=== PATIENT | male | born 1985 | race Hispanic/Latino ===

== ENCOUNTER 2019-11-24 05:37 | Emergency (ER) | payer OTHER ==
[2019-11-24] MEDS ORDERED: NA CHLORIDE 0.9% 1,000 ML ONE (06:49)
[2019-11-24 06:52] LABS: Absolute Lymphocytes (CBC) 1.1 K/uL (0.7-4.9); Basophils % 0.6 % (0-1.3); Hematocrit 44.3 % (39.6-49.0); Lymphocytes % 15.8 % (15.3-44.8); MPV 8.7 fL (7.6-11.3)
[2019-11-24 06:56] LABS: Protime INR 1.02
[2019-11-24 07:06] LABS: Arterial Blood Carboxyhemoglob 0.8 % (0-1.5); Blood O2 Saturation 98.5 % (92-98.5)
[2019-11-24 07:11] LABS: Barbiturates NEGATIVE (NEGATIVE); Benzodiazepines NEGATIVE (NEGATIVE); Cocaine NEGATIVE (NEGATIVE); METHAMPHETAM NEGATIVE (NEGATIVE); Methadone NEGATIVE (NEGATIVE); Opiates NEGATIVE (NEGATIVE); Phencyclidine NEGATIVE (NEGATIVE); THC Cannibis NEGATIVE (NEGATIVE)
[2019-11-24 07:30] LABS: ALT/SGPT 26 U/L (12-78); AST/SGOT 18 U/L (15-37); Albumin 4.2 g/dL (3.4-5.0); Alkaline Phosphatase 84 U/L (45-117); BUN Blood Urea Nitrogen 8 mg/dL (7-18); Bicarbonate 27 mmol/L (21-32); Bilirubin Direct 0.2 mg/dL (0-0.2); Bilirubin Total 0.9 mg/dL (0.2-1.0); Glucose Level 114 mg/dL (74-106); NT PRO-BNP 15 pg/mL (<125); Potassium 3.7 mmol/L (3.5-5.1); Protein, Total 7.3 g/dL (6.4-8.2); Sodium Level 139 mmol/L (136-145); Troponin (Emerg Dept Use Only) < 0.02 ng/mL (0.0-0.045)
--- NOTE | 2019-11-24 07:49 | EDPHYS ---
Physician Documentation [facility] Name: Mauro Flanagan Age: 34 yrs Sex: Male : 1985 Arrival Date: 11/24/2019 Time: 05:38 Bed 7 Private MD: ED Physician Channing Walker HPI: 11/24 06:24 This 34 yrs old Male presents to ER via EMS with complaints of Shortness Of gail Breath. 06:24 This 34 yrs old Male presents to ER via EMS with complaints of Shortness Of gail Breath. 06:24 The patient has shortness of breath at rest, with light activity. Onset: The gail symptoms/episode began/occurred just prior to arrival. Duration: The symptoms are continuous, and are unchanged since they started. The patient's shortness of breath has no apparent modifying factors. Associated signs and symptoms: Pertinent positives: non-productive cough, dizziness. Severity of symptoms: At their worst the symptoms were moderate in the emergency department the symptoms are unchanged. Historical: - Allergies: 05:40 Guaifenesin; jb4 - Home Meds: 05:40 None [Active]; jb4 - PMHx: 05:40 None; jb4 - PSHx: 05:40 None; jb4 - Immunization history:: Adult Immunizations up to date. - Coronavirus screen:: The patient has NOT traveled to [place], [place], or [place] in the past 14 days. Proceed with normal triage process as indicated. The patient has NOT had contact with known/suspected case of Coronavirus? Proceed with normal triage procedures. - Social history:: Smoking status: Patient denies any tobacco usage or history of. Patient uses alcohol, occasionally. Patient/guardian denies using street drugs. - Family history:: not pertinent. - Ebola Screening: : No symptoms or risks identified at this time. ROS: 06:24 Constitutional: Negative for fever, chills, and weight loss, Eyes: Negative for injury, gail pain, redness, and discharge, ENT: Negative for injury, pain, and discharge, Neck: Negative for injury, pain, and swelling, Cardiovascular: Negative for chest pain, palpitations, and edema, Abdomen/GI: Negative for abdominal pain, nausea, vomiting, diarrhea, and constipation, Back: Negative for injury and pain, : Negative for injury, bleeding, discharge, and swelling, MS/Extremity: Negative for injury and deformity, Skin: Negative for injury, rash, and discoloration, Neuro: Negative for headache, weakness, numbness, tingling, and seizure, Psych: Negative for depression, anxiety, suicide ideation, homicidal ideation, and hallucinations, Allergy/Immunology: Negative for hives, rash, and allergies, Endocrine: Negative for neck swelling, polydipsia, polyuria, polyphagia, and marked weight changes, Hematologic/Lymphatic: Negative for swollen nodes, abnormal bleeding, and unusual bruising. 06:24 Respiratory: Positive for cough, shortness of breath, at rest. Exam: 06:24 Constitutional: This is a well developed, well nourished patient who is awake, alert, gail and in no acute distress. Head/Face: Normocephalic, atraumatic. Eyes: Pupils equal round and reactive to light, extra-ocular motions intact. Lids and lashes normal. Conjunctiva and sclera are non-icteric and not injected. Cornea within normal limits. Periorbital areas with no swelling, redness, or edema. ENT: Nares patent. No nasal discharge, no septal abnormalities noted. Tympanic membranes are normal and external auditory canals are clear. Oropharynx with no redness, swelling, or masses, exudates, or evidence of obstruction, uvula midline. Mucous membranes moist. Neck: Trachea midline, no thyromegaly or masses palpated, and no cervical lymphadenopathy. Supple, full range of motion without nuchal rigidity, or vertebral point tenderness. No Meningismus. Chest/axilla: Normal chest wall appearance and motion. Nontender with no deformity. No lesions are appreciated. Cardiovascular: Regular rate and rhythm with a normal S1 and S2. No gallops, murmurs, or rubs. Normal PMI, no JVD. No pulse deficits. Respiratory: Lungs have equal breath sounds bilaterally, clear to auscultation and percussion. No rales, rhonchi or wheezes noted. No increased work of breathing, no retractions or nasal flaring. Abdomen/GI: Soft, non-tender, with normal bowel sounds. No distension or tympany. No guarding or rebound. No evidence of tenderness throughout. Back: No spinal tenderness. No costovertebral tenderness. Full range of motion. Male : Normal genitalia with no discharge or lesions. Skin: Warm, dry with normal turgor. Normal color with no rashes, no lesions, and no evidence of cellulitis. MS/ Extremity: Pulses equal, no cyanosis. Neurovascular intact. Full, normal range of motion. Neuro: Awake and alert, GCS 15, oriented to person, place, time, and situation. Cranial nerves II-XII grossly intact. Motor strength 5/5 in all extremities. Sensory grossly intact. Cerebellar exam normal. Normal gait. Psych: Awake, alert, with orientation to person, place and time. Behavior, mood, and affect are within normal limits. 06:24 Musculoskeletal/extremity: DVT Exam: No signs of deep vein thrombosis. no pain, no swelling, no tenderness, negative Homans' sign noted on exam, no appreciated bluish discoloration, no erythema, no increased warmth. 07:30 Cardiovascular: Rate: normal, Rhythm: regular, Pulses: Pulses are 4+ in bilateral gail radial, brachial, femoral, popliteal, posterior tibial and and dorsalis pedis arteries.. Heart sounds: normal, normal S1and S2, no S3 or S4, no murmur, no rub, no gallop, Edema: is not appreciated, JVD: is not appreciated. Vital Signs: 05:40 BP 156 / 110; Pulse 100; Resp 20; Temp 97.7(O); Pulse Ox 100% on R/A; Weight 92.99 kg jb4 (R); Height 5 ft. 11 in. (180.34 cm) (R); Pain 0/10; 06:45 BP 151 / 111; Pulse 76; Resp 18; Pulse Ox 100% on R/A; lp1 07:30 BP 143 / 86; Pulse 80; Resp 22; Temp 98.5(O); Pulse Ox 100% on 2 lpm NC; em 08:30 BP 138 / 79; Pulse 72; Resp 16; Pulse Ox 100% on R/A; em 05:40 Body Mass Index 28.59 (92.99 kg, 180.34 cm) jb4 MDM: 06:10 Patient medically screened. [facility] 06:24 Data reviewed: vital signs, nurses notes, lab test result(s), EKG, radiologic studies, [facility] plain films. 07:37 ED course: no trauma, no stasis, no hc state. [facility] 11/24 06:24 Order name: Basic Metabolic Panel [facility] 11/24 06:24 Order name: CBC with Diff [facility] 11/24 06:24 Order name: LFT's [facility] 11/24 06:24 Order name: Magnesium [facility] 11/24 06:24 Order name: NT PRO-BNP [facility] 11/24 06:24 Order name: PT-INR; Complete Time: 07:25 [facility] 11/24 06:24 Order name: Troponin (emerg Dept Use Only); Complete Time: 07:35 [facility] 11/24 06:24 Order name: Acetaminophen; Complete Time: 07:35 [facility] 11/24 06:24 Order name: ETOH Level; Complete Time: 07:25 [facility] 11/24 06:24 Order name: Ptt, Activated; Complete Time: 07:25 [facility] 11/24 06:24 Order name: Salicylate; Complete Time: 07:25 [facility] 11/24 06:24 Order name: Urine Drug Screen; Complete Time: 07:25 [facility] 11/24 06:24 Order name: ABG; Complete Time: 07:35 [facility] 11/24 06:24 Order name: Basic Metabolic Panel; Complete Time: 07:35 [facility] 11/24 06:24 Order name: XRAY Chest (1 view); Complete Time: 08:55 [facility] 11/24 06:24 Order name: EKG; Complete Time: 06:25 [facility] 11/24 06:24 Order name: Cardiac monitoring; Complete Time: 06:30 [facility] 11/24 06:24 Order name: EKG - Nurse/Tech; Complete Time: 06:50 [facility] 11/24 06:24 Order name: IV Saline Lock; Complete Time: 06:50 [facility] 11/24 06:24 Order name: Labs collected and sent; Complete Time: 06:50 [facility] 11/24 06:24 Order name: O2 Per Protocol; Complete Time: 06:30 [facility] 11/24 06:24 Order name: O2 Sat Monitoring; Complete Time: 06:30 [facility] 11/24 06:24 Order name: Urine Dipstick-Ancillary (obtain specimen); Complete Time: 07:06 [facility] 11/24 06:24 Order name: CBC with Automated Diff; Complete Time: 06:57 [facility] 11/24 06:24 Order name: Liver (Hepatic) Function; Complete Time: 07:35 [facility] 11/24 06:24 Order name: Magnesium; Complete Time: 07:35 [facility] 11/24 06:24 Order name: NT PRO-BNP; Complete Time: 07:35 [facility] 11/24 07:48 Order name: Diet Regular; Complete Time: 07:48 ss Administered Medications: 07:00 Drug: NS 0.9% 1000 ml Route: IV; Rate: 1 bolus; Site: right antecubital; lp1 08:49 Follow up: IV Status: Completed infusion; IV Intake: 1000ml em Disposition: 11/24/19 07:49 Discharged to Home. Impression: Dyspnea. - Condition is Stable. - Discharge Instructions: Shortness of Breath, Shortness of Breath, [id number]. - Medication Reconciliation Form, Thank You Letter, Antibiotic Education, Prescription Opioid Use form. - Follow up: Private Physician; When: 2 - 3 days; Reason: Recheck today's complaints, Continuance of care, Re-evaluation by your physician. - Problem is new. - Symptoms have improved. Signatures: Dispatcher [employer] Channing Hernandez MD MD cha Munoz, Edgar RN RN Ernestine Davis RN RN lp1 Hermilo Cooper RN RN jb4 Corrections: (The following items were deleted from the chart) 09:49 07:49 11/24/2019 07:49 Discharged to Home. Impression: Dyspnea. Condition is Stable. em Forms are Medication Reconciliation Form, Thank You Letter, Antibiotic Education, Prescription Opioid Use. Follow up: Private Physician; When: 2 - 3 days; Reason: Recheck today's complaints, Continuance of care, Re-evaluation by your physician. Problem is new. Symptoms have improved. gail
--- NOTE | 2019-11-24 07:49 | ER ---
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 He was wearing a respirator and took it off to get a drink. After doing so he reported smelling something and feeling dizzy and short of breath. Pt was hyperventilating on scene, his BGL was 140. blood pressure 144/94 and pulse maintained at 100-114. Pt remained 100% on roomair. 05:40 Transition of care: patient was not received from another setting of care. Onset of jb4 symptoms was November 24, 2019. Risk Assessment: Do you want to hurt yourself or someone else? Patient reports no desire to harm self or others. Initial Sepsis Screen: Does the patient meet any 2 criteria? HR > 90 bpm. Yes Does the patient have a suspected source of infection? No. Patient's initial sepsis screen is negative. Care prior to arrival: Glucose check: 140 Oxygen administered. via a non-rebreather mask. 05:40 Method Of Arrival: EMS: [facility] jb4 05:40 Acuity: MARTA 3 jb4 Historical: - Allergies: 05:40 Guaifenesin; jb4 - Home Meds: 05:40 None [Active]; jb4 - PMHx: 05:40 None; jb4 - PSHx: 05:40 None; jb4 - Immunization history:: Adult Immunizations up to date. - Coronavirus screen:: The patient has NOT traveled to [place], [place], or [place] in the past 14 days. Proceed with normal triage process as indicated. The patient has NOT had contact with known/suspected case of Coronavirus? Proceed with normal triage procedures. - Social history:: Smoking status: Patient denies any tobacco usage or history of. Patient uses alcohol, occasionally. Patient/guardian denies using street drugs. - Family history:: not pertinent. - Ebola Screening: : No symptoms or risks identified at this time. Screenin:46 Abuse screen: Denies threats or abuse. Denies injuries from another. Nutritional lp1 screening: No deficits noted. Tuberculosis screening: No symptoms or risk factors identified. Fall Risk None identified. Assessment: 06:40 General: Appears in no apparent distress. Behavior is calm, cooperative, Reports lp1 feeling ill for 0-12 hours. Pain: Denies pain. Neuro: Level of Consciousness is awake, alert, obeys commands, Oriented to person, place, time, situation, Reports dizziness, headache. Cardiovascular: Patient's skin is warm and dry. Rhythm is sinus rhythm. Respiratory: Airway is patent Respiratory effort is even, unlabored, Breath sounds are clear bilaterally. Onset: The symptoms/episode began/occurred suddenly, the patient has mild shortness of breath. GI: No signs and/or symptoms were reported involving the gastrointestinal system. : No signs and/or symptoms were reported regarding the genitourinary system. EENT: No signs and/or symptoms were reported regarding the EENT system. Derm: Skin is pink, warm \T\ dry. Musculoskeletal: No deficits noted. 07:25 Reassessment: reports feeling hot from the neck up, also reports becoming dizzy, em provider notified, VSS. 07:50 Reassessment: Patient appears in no apparent distress at this time. up for discharge, em pending symptoms to improve. 08:38 Reassessment: Patient appears in no apparent distress at this time. Patient and/or em family updated on plan of care and expected duration. Pain level reassessed. Patient is alert, oriented x 3, equal unlabored respirations, skin warm/dry/pink. breakfast tray delivered, reports still feeling warm, mother at bedside. 08:55 Reassessment: Patient appears in no apparent distress at this time. Dr. Walker at em bedside. Vital Signs: 05:40 BP 156 / 110; Pulse 100; Resp 20; Temp 97.7(O); Pulse Ox 100% on R/A; Weight 92.99 kg jb4 (R); Height 5 ft. 11 in. (180.34 cm) (R); Pain 0/10; 06:45 BP 151 / 111; Pulse 76; Resp 18; Pulse Ox 100% on R/A; lp1 07:30 BP 143 / 86; Pulse 80; Resp 22; Temp 98.5(O); Pulse Ox 100% on 2 lpm NC; em 08:30 BP 138 / 79; Pulse 72; Resp 16; Pulse Ox 100% on R/A; em 05:40 Body Mass Index 28.59 (92.99 kg, 180.34 cm) jb4 ED Course: 05:38 Patient arrived in ED. cl3 05:40 Arm band placed on right wrist. jb4 05:46 Hermilo Cooper, RN is Primary Nurse. jb4 05:53 Triage completed. jb4 06:10 Channing Walker MD is Attending Physician. gail 06:40 Inserted saline lock: 20 gauge in right antecubital area, using aseptic technique. lp1 Blood collected. 06:40 Initial lab(s) drawn, by nv, sent to lab. lp1 06:47 Ernestine Davis, RN is Primary Nurse. lp1 06:48 Patient has correct armband on for positive identification. Placed in gown. Bed in low lp1 position. court monitor on. Pulse ox on. NIBP on. 07:23 XRAY Chest (1 view) In Process Unspecified. EDMS 09:01 No provider procedures requiring assistance completed. IV discontinued, intact, em bleeding controlled, No redness/swelling at site. Pressure dressing applied. Administered Medications: 07:00 Drug: NS 0.9% 1000 ml Route: IV; Rate: 1 bolus; Site: right antecubital; lp1 08:49 Follow up: IV Status: Completed infusion; IV Intake: 1000ml em Intake: 08:49 IV: 1000ml; Total: 1000ml. em Outcome: 07:49 Discharge ordered by MD. [facility] 09:41 Discharged to home ambulatory, with family. em 09:41 Condition: good 09:41 Discharge instructions given to patient, family, Instructed on discharge instructions, follow up and referral plans. Demonstrated understanding of instructions, follow-up care. 09:49 Patient left the ED. em Signatures: Dispatcher [employer] EDMS Channing Walker MD MD cha Munoz, Edgar, RN RN em Ernestine Davis, KAYLA RN lp1 Hermilo Cooper, KAYLA RN [email or web address] Bob Higgins cl3 Corrections: (The following items were deleted from the chart) 06:48 06:40 Respiratory: Airway is patent Respiratory effort is even, unlabored, Breath lp1 sounds are clear bilaterally. lp1
--- NOTE | 2019-11-24 08:17 | RAD REPORT ---
EXAM DESCRIPTION: RAD - Chest Single View - 11/24/2019 7:18 am CLINICAL HISTORY: COUGH COMPARISON: Abdomen Acute Series dated 09/20/2016 TECHNIQUE: AP portable chest image was obtained 11/24/2019 7:18 am . FINDINGS: Lungs are clear. Heart and vasculature are normal. No measurable pleural effusion and no p neumothorax. No acute bony abnormality seen. No acute aortic findings suspected. IMPRESSION: No acute cardiopulmonary process. No significant change from comparison.
[2019-11-24 10:05] VITALS: O2SAT 100
[2019-11-24 10:07] VITALS: TEMP 98.5
[2019-11-24 10:09] VITALS: BP 138/79
--- NOTE | 2019-11-25 05:28 | EKG ---
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
== END 2019-11-24 09:49 | disposition home or self-care (01) ==
LOC: ER 05:37
DX: R06.00 Dyspnea, unspecified (principal); Z88.8 Allergy status to other drugs, medicaments and biological substances
CPT/HCPCS: 36415; 71045; 80048; 80076; 80307; 80320; 80329; 82805; 83735; 83880; 84484; 85025; 85610; 85730; 93005; 96360; 96361; 99284; J7030

== ENCOUNTER 2020-08-11 02:36 | Emergency (ER) | payer OTHER ==
--- OUTSIDE RECORDS SUMMARY | 2020-08-11 02:38 | XMS REPORT | Clinical Summary ---
:1985 Author Organization [facility] Address [address] [place] [address] Care Team Providers Name Role Phone Unavailable Primary Care Provider Unavailable Allergies Not on File Medications Not on file Active Problems Not on file Social History Tobacco Use Types Packs/Day Years Used Date Never Assessed Sex Assigned at Date Recorded Not on file Last Filed Vital Signs Not on file Plan of Treatment Not on file Results Not on fileafter 08/11/2019 Insurance Payer Benefit Plan / Subscriber ID Effective Dates Phone Addre ss Type Group BLUE BCBS PPO POS [id number] 2018-Vikram [phone] [id number] PPO CROSS/BLUE EPO CHOICE t 2 [facility] [id number] ([place]) [place] [address]
--- OUTSIDE RECORDS SUMMARY | 2020-08-11 02:38 | XMS REPORT | Continuity of Care Document ---
:1985 Author Organization [facility] t Address [address] [place] [address] Care Team Providers Name Role Phone Christiano Ortega MD Attending Clinician Cynthia GARZA M Attending Clinician Unavailable Jeremiah Vazquez Attending Clinician Adrien MORTENSEN Attending Clinician Doctor Unassigned, Name Attending Clinician Unavailable Jenifer Burns DO Attending Clinician Problems This patient has no known problems. Allergies, Adverse Reactions, Alerts This patient has no known allergies or adverse reactions. Social History Social Habit Start Date Stop Date Quantity Comments Source Sex Assigned At [facility] Medications This patient has no known medications. Procedures This patient has no known procedures. Encounters Start End Encounter Admission Attending Care Care Encounter Source Date/Time Date/Time Type Type Clinicians Facility Department ID 2020-08-09 2020-08-09 Emergency Ángelavt [facility] [id number] 02:55:00 05:26:00 Claudia Marquez [id number] [place] [id number] [place] [id number] 2020-08-09 2020-08-09 Telephone Cinthya Marie [id number] 00:00:00 00:00:00 SETH [id number] [facility] [id number] 2020-04-14 2020-04-14 Emergency [facility] [id number] 19:48:48 22:09:00 Sylvester Jeremiah Alma [id number] [place] [id number] [place] [id number] 2020-02-08 2020-02-08 Emergency [facility] [id number] 08:38:28 10:45:00 Connoranastacia Marquez [id number] [place] [id number] [place] [id number] 2020-01-16 2020-01-16 Emergency [facility] [id number] 00:05:28 01:35:00 Claudia Marquez [id number] [place] [id number] [place] [id number] 2020-01-16 2020-01-16 Orders Doctor JASIEL [id number] 00:00:00 00:00:00 Only Unassigned, SETH [id number] [facility] [id number] 2019-12-18 2019-12-18 Emergency [facility] [id number] 00:14:18 01:15:00 Mary Marquez [id number] [place] [id number] [place] [id number] Results This patient has no known results.
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
--- OUTSIDE RECORDS SUMMARY | 2020-08-11 02:39 | XMS REPORT | Summary of Care ---
:1985 Author Organization [facility] Address [address] [place] [address] Care Team Providers Name Role Phone Lauren Martin MD Primary Care Provider Reason for Visit Reason Comments Results Encounter Details Date Type Department Care Team Description 08/09/2020 Telephone [facility] Cinthya Marie, RN Results [address] [phone] [place], [place] [id number] Allergies Active Allergy Reactions Severity Noted Date [...] of this encounter Last Filed Vital Signs Not on filedocumented in this encounter Miscellaneous Notes Telephone Encounter - Cinthya Marie RN - 08/09/2020 11:37 PM CDTMauro Flanagan is a 35 year old male who tested negative for Covid-19. Letter sent with the following information. Your COVID 19 testing results were negative. At this time, the COVID 19 virus was NOT found in your sample. Continue to protect yourself by wearing a facemask and washing your hands frequently. If youhave not had symptoms, you may return to work immediately. If you had symptoms, you may return to work or school when you are feeling better and have not had a fever for 24 hours or more without takingfever reducing medications such as acetaminophen or ibuprofen and are 10 days from your first symptoms. Wear a mask until it has been greater than 14 days from when your first symptoms appeared. If you are a [facility] or contract employee or student, please refer to this website for more information https: [email or web address]. If you feel you are not getting better, please call the Access Center at [phone] or toll free to schedule a telehealth visit or face to face visit with a provider. Most acute illnesses resolve within 7 days. DAVY [facility] Triage Nurse documented in this encounter Plan of Treatment Health Maintenance Due Date Last Done Comments VARICELLA VACCINES (1 of 2 - 2-dose childhood series) 1987 PNEUMOCOCCAL 0-64 YEARS COMBINED SERIES (1 of 1 - 1992 PPSV23) Depression Screening 1998 DTaP,Tdap,and Td Vaccines (1 - Tdap) 2005 INFLUENZA VACCINE (#1) 2020 documented as of this encounter Results Not on filedocumented in this encounter Additional Health Concerns Infection Onset Date Last Indicated Resolved Time COVID-19 Rule Out 08/09/2020 08/09/2020 08/09/2020 6: 31 PM CDT documented as of this encounter
[2020-08-11] MEDS ORDERED: LORazepam 2 MG/ML VIAL ONE (02:50)
[2020-08-11] MEDS ORDERED: ONDANSETRON 4 MG/2 ML VIAL ONE (03:10)
[2020-08-11] MEDS ORDERED: NA CHLORIDE 0.9% 1,000 ML ONE ×2 (03:26→03:41)
[2020-08-11 03:49] LABS: Basophils % 0.5 % (0-1.3); Hematocrit 46.5 % (39.6-49.0); Lymphocytes % 27.3 % (15.3-44.8); MPV 8.8 fL (7.6-11.3); RBC Red Blood Cell Count 5.25 M/uL (4.33-5.43)
[2020-08-11 04:05] LABS: Potassium 3.9 mmol/L (3.5-5.1)
[2020-08-11] MEDS ORDERED: ACETAMINOPHEN 500 MG TAB ONE (04:54)
[2020-08-11] MEDS ORDERED: IBUPROFEN 400 MG TAB ONE (04:54)
--- NOTE | 2020-08-11 05:25 | EDPHYS ---
Physician Documentation [facility] Name: Mauro Flanagan Age: 35 yrs Sex: Male : 1985 Arrival Date: 08/11/2020 Time: 02:38 Bed 14 Private MD: ED Physician Terry Ariza HPI: 08/11 04:42 This 35 yrs old Male presents to ER via Ambulatory with complaints of Migraine.pkl 04:42 The patient complains of pain to the top of head and forehead. The patient describes pkl the headache as constant. Onset: The symptoms/episode began/occurred 3 day(s) ago. Associated signs and symptoms: Pertinent positives: nausea. Seen at [facility] ER 3 days ago for same complaints. Had Covid 19 done. Told it was negative. Historical: - Allergies: 03:10 GUAIFENESIN; jb4 - Home Meds: 03:10 z-pack [Active]; jb4 - PMHx: 03:10 None; jb4 - PSHx: 03:10 None; jb4 - Immunization history:: Adult Immunizations up to date. - Social history:: Smoking status: Patient denies any tobacco usage or history of. Patient/guardian denies using alcohol, street drugs. ROS: 04:42 Eyes: Negative for injury, pain, redness, and discharge, ENT: Negative for injury, pkl pain, and discharge, Neck: Negative for injury, pain, and swelling, Cardiovascular: Negative for chest pain, palpitations, and edema, Respiratory: Negative for shortness of breath, cough, wheezing, and pleuritic chest pain, Abdomen/GI: Negative for abdominal pain, nausea, vomiting, diarrhea, and constipation, Back: Negative for injury and pain, : Negative for injury, bleeding, discharge, and swelling, MS/Extremity: Negative for injury and deformity, Skin: Negative for injury, rash, and discoloration. 04:42 Neuro: Positive for headache. Exam: 04:42 Head/Face: Normocephalic, atraumatic. Eyes: Pupils equal round and reactive to light, pkl extra-ocular motions intact. Lids and lashes normal. Conjunctiva and sclera are non-icteric and not injected. Cornea within normal limits. Periorbital areas with no swelling, redness, or edema. ENT: Nares patent. No nasal discharge, no septal abnormalities noted. Tympanic membranes are normal and external auditory canals are clear. Oropharynx with no redness, swelling, or masses, exudates, or evidence of obstruction, uvula midline. Mucous membranes moist. Neck: Trachea midline, no thyromegaly or masses palpated, and no cervical lymphadenopathy. Supple, full range of motion without nuchal rigidity, or vertebral point tenderness. No Meningismus. Chest/axilla: Normal chest wall appearance and motion. Nontender with no deformity. No lesions are appreciated. Cardiovascular: Regular rate and rhythm with a normal S1 and S2. No gallops, murmurs, or rubs. Normal PMI, no JVD. No pulse deficits. Respiratory: Lungs have equal breath sounds bilaterally, clear to auscultation and percussion. No rales, rhonchi or wheezes noted. No increased work of breathing, no retractions or nasal flaring. Abdomen/GI: Soft, non-tender, with normal bowel sounds. No distension or tympany. No guarding or rebound. No evidence of tenderness throughout. Back: No spinal tenderness. No costovertebral tenderness. Full range of motion. Skin: Warm, dry with normal turgor. Normal color with no rashes, no lesions, and no evidence of cellulitis. MS/ Extremity: Pulses equal, no cyanosis. Neurovascular intact. Full, normal range of motion. Neuro: Awake and alert, GCS 15, oriented to person, place, time, and situation. Cranial nerves II-XII grossly intact. Motor strength 5/5 in all extremities. Sensory grossly intact. Cerebellar exam normal. Normal gait. Vital Signs: 03:10 BP 141 / 92; Pulse 63; Resp 16; Temp 98.2(A); Pulse Ox 100% on R/A; Weight 90.72 kg jb4 (R); Height 5 ft. 10 in. (177.80 cm); Pain 10/10; 04:40 BP 129 / 89; Pulse 54; Resp 16; Pulse Ox 100% on R/A; jb4 05:32 BP 123 / 90; Pulse 55; Resp 16; Pulse Ox 100% on R/A; Pain 2/10; jb4 03:10 Body Mass Index 28.70 (90.72 kg, 177.80 cm) [facility] MDM: 03:11 Patient medically screened. pkl 05:19 Data reviewed: vital signs, nurses notes, radiologic studies, CT scan. ED course: pkl Patient feeling better. Discussed lab and CT Scan result with patient. Advised to follow up with PCP in 2 to 3 days. To return if necessary. Patient understood instructions. 08/11 03:24 Order name: CBC with Diff; Complete Time: 04:32 pkl 08/11 03:24 Order name: Chem 7; Complete Time: 04:32 pkl 08/11 03:24 Order name: CT Head Brain wo Cont pkl Administered Medications: 03:37 Drug: NS 0.9% 1000 ml Route: IV; Rate: 1000 ml; Site: right antecubital; jb4 04:39 Follow up: Response: No adverse reaction; IV Status: Completed infusion jb4 04:45 Drug: Tylenol 1000 mg Route: PO; jb4 05:34 Follow up: Response: No adverse reaction; Pain is decreased jb4 04:45 Drug: Motrin 400 mg Route: PO; jb4 05:35 Follow up: Response: No adverse reaction; Pain is decreased jb4 Disposition: 08/11/20 05:24 Discharged to Home. Impression: Acute headache. - Condition is Stable. - Medication Reconciliation Form, Thank You Letter, Antibiotic Education, Prescription Opioid Use form. - Follow up: Private Physician; When: 2 - 3 days; Reason: Re-evaluation by your physician. - Problem is new. - Symptoms have improved. Signatures: Dispatcher [employer] EDMS Terry Ariza MD MD pkHermilo Reyes RN RN jb4 Corrections: (The following items were deleted from the chart) 05:35 05:24 08/11/2020 05:24 Discharged to Home. Impression: Acute headache. Condition is jb4 Stable. Forms are Medication Reconciliation Form, Thank You Letter, Antibiotic Education, Prescription Opioid Use. Follow up: Private Physician; When: 2 - 3 days; Reason: Re-evaluation by your physician. Problem is new. Symptoms have improved. pkl
--- NOTE | 2020-08-11 05:25 | ER ---
Nurse's Notes [facility] Name: Mauro Flanagan Age: 35 yrs Sex: Male : 1985 Arrival Date: 08/11/2020 Time: 02:38 Bed 14 Private MD: Diagnosis: Acute headache Presentation: 08/11 03:10 Chief complaint: Patient states: I have a headache that started on Monday. I have had jb4 migraines before but this is a different kind of headache. It runs down to my neck. I thought it was a pinched nerve but this is worse. 03:10 Coronavirus screen: Client denies travel out of the [place] in the last 14 days. At this jb4 time, the client does not indicate any symptoms associated with coronavirus-19. Ebola Screen: No symptoms or risks identified at this time. Initial Sepsis Screen: Does the patient meet any 2 criteria? No. Patient's initial sepsis screen is negative. Does the patient have a suspected source of infection? No. Patient's initial sepsis screen is negative. Risk Assessment: Do you want to hurt yourself or someone else? Patient reports no desire to harm self or others. Onset of symptoms was August 08, 2020. Transition of care: patient was not received from another setting of care. 03:10 Method Of Arrival: Ambulatory jb4 03:10 Acuity: MARTA 3 jb4 Historical: - Allergies: 03:10 GUAIFENESIN; jb4 - Home Meds: 03:10 z-pack [Active]; jb4 - PMHx: 03:10 None; jb4 - PSHx: 03:10 None; jb4 - Immunization history:: Adult Immunizations up to date. - Social history:: Smoking status: Patient denies any tobacco usage or history of. Patient/guardian denies using alcohol, street drugs. Screenin:10 Abuse screen: Denies threats or abuse. Nutritional screening: No deficits noted. jb4 Tuberculosis screening: No symptoms or risk factors identified. Fall Risk None identified. Assessment: 03:10 General: Appears in no apparent distress. uncomfortable, Behavior is calm, cooperative, jb4 appropriate for age. Pain: Complains of pain in scalp Pain radiates to neck Pain currently is 10 out of 10 on a pain scale. Neuro: Level of Consciousness is awake, alert, obeys commands, Oriented to person, place, time, situation. Cardiovascular: Patient's skin is warm and dry. Respiratory: Airway is patent Respiratory effort is even, unlabored, Respiratory pattern is regular, symmetrical. GI: No signs and/or symptoms were reported involving the gastrointestinal system. : No signs and/or symptoms were reported regarding the genitourinary system. EENT: No signs and/or symptoms were reported regarding the EENT system. Derm: Skin is intact, Skin is pink, warm \T\ dry. Musculoskeletal: Circulation, motion, and sensation intact. Range of motion: intact in all extremities. 04:30 Reassessment: Patient appears in no apparent distress at this time. Patient and/or jb4 family updated on plan of care and expected duration. Pain level reassessed. Patient is alert, oriented x 3, equal unlabored respirations, skin warm/dry/pink. 05:32 Reassessment: Patient appears in no apparent distress at this time. Patient and/or jb4 family updated on plan of care and expected duration. Pain level reassessed. Patient is alert, oriented x 3, equal unlabored respirations, skin warm/dry/pink. Vital Signs: 03:10 BP 141 / 92; Pulse 63; Resp 16; Temp 98.2(A); Pulse Ox 100% on R/A; Weight 90.72 kg jb4 (R); Height 5 ft. 10 in. (177.80 cm); Pain 10/10; 04:40 BP 129 / 89; Pulse 54; Resp 16; Pulse Ox 100% on R/A; jb4 05:32 BP 123 / 90; Pulse 55; Resp 16; Pulse Ox 100% on R/A; Pain 2/10; jb4 03:10 Body Mass Index 28.70 (90.72 kg, 177.80 cm) 4 ED Course: 02:38 Patient arrived in ED. cl3 02:56 Hermilo Cooper, KAYLA is Primary Nurse. jb4 03:10 Arm band placed on right wrist. jb4 03:10 Patient has correct armband on for positive identification. Bed in low position. Call [facility] light in reach. Side rails up X 1. Pulse ox on. NIBP on. 03:11 Terry Ariza MD is Attending Physician. pkl 03:18 Triage completed. jb4 03:30 Initial lab(s) drawn, by me, sent to lab. Inserted saline lock: 18 gauge in right jb4 antecubital area, using aseptic technique. Blood collected. 03:49 CT Head Brain wo Cont In Process Unspecified. EDMS 05:34 No provider procedures requiring assistance completed. IV discontinued, intact, jb4 bleeding controlled, No redness/swelling at site. Pressure dressing applied. Administered Medications: 03:37 Drug: NS 0.9% 1000 ml Route: IV; Rate: 1000 ml; Site: right antecubital; jb4 04:39 Follow up: Response: No adverse reaction; IV Status: Completed infusion jb4 04:45 Drug: Tylenol 1000 mg Route: PO; jb4 05:34 Follow up: Response: No adverse reaction; Pain is decreased jb4 04:45 Drug: Motrin 400 mg Route: PO; jb4 05:35 Follow up: Response: No adverse reaction; Pain is decreased jb4 Outcome: 05:24 Discharge ordered by . pkriver 05:34 Discharged to home ambulatory. jb4 05:34 Condition: stable 05:34 Discharge instructions given to patient, Instructed on discharge instructions, follow up and referral plans. Demonstrated understanding of instructions, follow-up care. 05:35 Patient left the ED. jb4 Signatures: Dispatcher [employer] Terry Garzon MD MD pkl Hermilo Cooper, RN RN [email or web address] Bob Higgins cl3
[2020-08-11 05:42] VITALS: TEMP 98.2; O2SAT 100
[2020-08-11 05:45] VITALS: BP 123/90
--- NOTE | 2020-08-11 09:52 | RAD REPORT ---
EXAM DESCRIPTION: CT Head Without Intravenous Contrast CLINICAL HISTORY: The patient is 35 years old and is Male; HEADACHE TECHNIQUE: Axial computed tomography images of the head/brain without intravenous contrast. Sagitt al and coronal reformatted images were created and reviewed. This CT exam was performed using one o r more of the following dose reduction techniques: automated exposure control, adjustment of the mA and/or kV according to patient size, and/or use of iterative reconstruction technique. COMPARISON: No relevant prior studies available. FINDINGS: BRAIN: Unremarkable. The brock-white matter differentiation is preserved . No hemorrhag e. No significant white matter disease. No edema. No extra-axial fluid collections. VENTRICLES: Unremarkable. No ventriculomegaly. BONES/JOINTS: No acute fracture. SOFT TISSUES: Unremarkable. SINUSES: Unremarkable as visualized. No acute sinusitis. MASTOID AIR CELLS: Unremarkable as visualized. No mastoid effusion. ORBITS: Unremarkable as visualized. IMPRESSION: No acute intracranial findings. Electronically signed by: Alicia Fnich MD 08/11/2020 3:56 AM CDT Due to temporary technical issues with the PACS/Fluency reporting system, reports are being signed by the in house radiologist without review as a courtesy to ensure prompt reporting. The interpreting r adiologist is fully responsible for the content of the report.
== END 2020-08-11 05:35 | disposition home or self-care (01) ==
LOC: ER 02:36
DX: R51.9 Headache, unspecified (principal); Z88.8 Allergy status to other drugs, medicaments and biological substances
CPT/HCPCS: 85025; 80048; 36415; 70450; 96360; 99284; J2405; J7030

== ENCOUNTER 2022-01-13 22:46 | Emergency (ER) | payer SELFPAY ==
--- OUTSIDE RECORDS SUMMARY | 2022-01-13 22:49 | XMS REPORT | Continuity of Care Document ---
:1985 Author Organization [facility] t Address [address] [place] [address] Care Team Providers Name Role Phone Lauren LIMA Primary Care Physician Unavailable Stewart Erazo Attending Clinician Unavailable EBRAHIM Attending Clinician Unavailable Harriet BONDP Attending Clinician Jesus MORTENSEN Attending Clinician Shannon MORTENSEN, S Attending Clinician Cynthia GARZA, M Attending Clinician Unavailable Kiarra LOVE, B Attending Clinician Adrien MORTENSEN Attending Clinician Doctor Unassigned, Name Attending Clinician Unavailable Jenifer Burns DO Attending Clinician Payers Payer Name Policy Type Policy Number Effective Date Expiration Date Christiano SALGADO FROM [id number] 2021 [facility] 00:00:00 Problems Condition Condition Condition Status Onset Resolution Last Treating Co mments Source Name Details Category Date Date Treatment Clinician Date Appendicit Appendicit Disease Active U nivers is is 8-25 ity of 00:00: [place] [id number] Medical Branch Allergies, Adverse Reactions, Alerts Allergy Allergy Status Severity Reaction(s) Onset Inactive Treating Comm ents Source Name Type Date Date Clinician LIDOCAIN DRUG Active Other-Cmnt 2021-1 Univ ers E INGREDI 2-24 ity of 00:00: [place] 00 Medical Branch Lidocain Propensi Active Other - See 2020-10 High bp Univers e ty to comments 12-16 ity of adverse 00:00: [place] reaction 00 Medical s Branch Guaifene Propensi Active Rash Univer s sin ty to 12-18 ity of adverse 00:00: [place] reaction Medical s Branch GUAIFENE DRUG Active Rash Univers SIN INGREDI 12-18 ity of 00:00: [place] 00 Medical Branch Social History Social Habit Start Date Stop Date Quantity Comments Source History SDOH University o f Alcohol Frequency [place] [facility] History SDOH University o f Alcohol Std [place] [facility] Drinks Branch History SDTX University o f Alcohol Binge [place] [facility] al Branch History of Snuff User University of tobacco use [facility] Exposure to Not sure University of SARS-CoV-2 [facility] (event) [place] Alcohol intake 2021-10-07 2021-10-07 Current drinker Unive rsity of 00:00:00 00:00:00 of alcohol [facility] (finding) [place] Tobacco use and 2021-06-16 2021-06-16 Current user Univers ity of exposure 00:00:00 00:00:00 [facility] Tobacco Comment 2016-01-05 2016-01-05 smokes on Universit y of 00:00:00 00:00:00 weekends [facility] Alcohol Comment 2016-01-05 2016-01-05 on weekends Universi ty of 00:00:00 00:00:00 [facility] Sex Assigned At [address] [facility] - 00:00:00 00:00:00 [facility] Smoking Status Start Date Stop Date Source Former smoker 2021-06-16 00:00:00 2021-06-16 00:00:00 Universi ty of [facility] Medications Ordered Filled Start Stop Current Ordering Indication Dosage Frequency Signature Comments Components Source Medication Medication Date Date Medication? Clinician (SIG) Name Name acetaminoph 2020-10 No 1000mg 1,000 mg, Univers en 12-17 Oral, ity of (TYLENOL) 04:00: 03:03 ONCE, [place] tablet [place] dose, On Medical 1,000 mg Fri Branch 12/24/21 at 2200, MAKENZIE ibuprofen 2020-10 Yes [id number] 800mg Take 1 Univers 800 mg 2-16 tablet by ity of tablet 00:00: mouth [place] 00 every 6 Medical (six) Branch hours as needed for Pain (scale 1-3). ibuprofen 2020-10 Yes [id number] 800mg Take 1 Univers 800 mg 2-16 tablet by ity of tablet 00:00: mouth [place] 00 every 6 Medical (six) Branch hours as needed for Pain (scale 1-3). Vital Signs Vital Name Observation Time Observation Value Comments Source Systolic blood 2021-10-16 02:55:00 152 mm[Hg] Univer [facility]ity of [facility] Diastolic blood 2021-10-16 02:55:00 88 [facility]Hg[facility] Heart rate 2021-10-16 02:55:00 96 /min Universi ty [facility] Body temperature 2021-10-16 02:55:00 38.11 Alessandra [facility] Respiratory rate 2021-10-16 02:55:00 20 /min [facility] Body height 2021-10-16 02:55:00 177.8 cm Universi ty [facility] Body weight 2021-10-16 02:55:00 91.173 kg Universi ty [facility] BMI 2021-10-16 02:55:00 28.84 kg/m2 [facility] Oxygen saturation in 2021-10-16 02:55:00 99 /min University Arterial blood by [facility] Pulse oximetry Branch Systolic blood 2021-10-07 22:06:00 127 mm[Hg] Univer sity of [facility] Diastolic blood 2021-10-07 22:06:00 81 mm[Hg] Unive rsity of [facility] Heart rate 2021-10-07 22:06:00 63 /min Universi ty [facility] Body temperature 2021-10-07 22:06:00 36.17 Alessandra [facility] Res[facility] rate 2021-10-07 22:06:00 18 /min [facility] Body height 2021-10-07 22:06:00 180.3 cm Universi ty [facility] Body weight 2021-10-07 22:06:00 102.331 kg [facility] BMI 2021-10-07 22:06:00 31.46 kg/m2 [facility] Oxygen saturation in 2021-10-07 22:06:00 97 /min University Arterial blood by [facility] Pulse oximetry Branch Procedures Procedure Date / Time Performed Performing Clinician Sourc e RAPID STREP SCREEN 2021-10-16 02:59:00 Edda Larios [facility] FOR GROUP A Medical Branch COVID-19 (ID NOW 2021-10-16 02:59:00 Edda Larios [facility] RAPID TESTING) Medical Branch CONSENT/REFUSAL FOR 2021-10-16 02:36:12 Doctor Unassigned, No Un [facility] DIAGNOSIS AND Name Medical Branch TREATMENT Encounters Start End Encounter Admission Attending Care Care Encounter Source Date/Time Date/Time Type Type Clinicians Facility Department ID 2021-11-17 Outpatient [facility] [id number] [facility] [address] 13:24:20 [place] [id number] [facility] 2021-11-17 Outpatient Erazo, [facility] [id number] 12:50:53 [place] [id number] [facility] 2021-11-17 Outpatient Erazo, [facility] [id number] 12:40:29 [place] [id number] [facility] 2021-11-17 Outpatient Erazo, [facility] [id number] 12:34:01 [place] [id number] [facility] 2021-10-15 2021-10-15 Emergency X EBRAHIM, [facility] ERT [id number] Univers 20:58:00 23:19:00 EDDA del toro [facility] 2021-10-15 2021-10-15 Emergency Ebrahim, [facility] [id number] Univers 20:58:00 23:19:00 Edda COLVIN [id number] i ty [facility] [id number] [facility] [id number] [facility] 084 Branch 2021-10-07 2021-10-07 [facility] [id number] Univers 15:45:00 16:28:44 Visit Karla MARII [id number] i ty of [place] [id number] Eddie SALDIVAR [id number] Ne dical [address] 2020-08-09 2020-08-09 Emergency [facility] [id number] 02:55:00 05:26:00 Mattraghu Colivn [id number] [place] [id number] [place] [id number] 2020-08-09 2020-08-09 Telephone Cinthya Marie [id number] 00:00:00 00:00:[id number] [facility] [id number] 2020-04-14 2020-04-14 Emergency [facility] [id number] 19:48:48 22:09:00 Sylvester Colvin [id number] [place] [id number] [place] [id number] 2020-02-08 2020-02-08 [facility] [id number] 08:38:28 10:45:00 Connor Marii [id number] [place] [id number] [place] [id number] 2020-01-16 2020-01-16 Emergency [facility] [id number] 00:05:28 01:35:00 Claudia Colvin [id number] [place] [id number] [place] [id number] 2020-01-16 2020-01-16 Orders Doctor WEATHERS [id number] 00:00:00 00:00:00 Only Unassigned, S[facility] [id number] [facility] [id number] 2019-12-18 2019-12-18 Emergency [facility] [id number] 00:14:18 01:15:00 Mary Colvin [id number] [place] [id number] [place] [id number] Results This patient has no known results.
--- NOTE | 2022-01-13 23:19 | ER ---
Nurse's Notes [facility] Name: Mauro Flanagan Age: 36 yrs Sex: Male : 1985 Arrival Date: 01/13/2022 Time: 22:50 Bed 23 Private MD: Diagnosis: Local infection of the skin and subcutaneous tissue, unspecified Presentation: 01/13 22:53 Chief complaint: Patient states: 2 days ago "I think something bit me and its infected ss7 and swollen." Location pt states is at his waist. Coronavirus screen: Vaccine status: Patient reports being unvaccinated. Ebola Screen: No symptoms or risks identified at this time. Initial Sepsis Screen: Does the patient meet any 2 criteria? No. Patient's initial sepsis screen is negative. Does the patient have a suspected source of infection? No. Patient's initial sepsis screen is negative. Risk Assessment: Do you want to hurt yourself or someone else? Patient reports no desire to harm self or others. Onset of symptoms was January 11, 2022. 22:53 Method Of Arrival: Ambulatory ss7 22:53 Acuity: MARTA 4 ss7 Historical: - Allergies: 22:54 GUAIFENESIN; ss7 22:54 Lidocaine; increases blood pressure; ss7 - Home Meds: 22:54 None [Active]; ss7 - PMHx: 22:55 Inguinal hernia; ss7 - PSHx: 22:54 Appendectomy; ss7 - Immunization history:: Client reports having NOT received the Covid vaccine. Flu vaccine is not up to date. - Social history:: Smoking status: Patient denies any tobacco usage or history of. Screenin:58 Abuse screen: Denies threats or abuse. Denies injuries from another. Nutritional tk1 screening: No deficits noted. Tuberculosis screening: No symptoms or risk factors identified. Fall Risk None identified. Assessment: 22:58 General: Appears comfortable, well developed, well nourished, Behavior is calm, tk1 cooperative, appropriate for age. Pain: Complains of pain in left suprapubic area Pain does not radiate. Pain currently is 9 out of 10 on a pain scale. Quality of pain is described as pressure, Pain began 2-3 days ago. Is continuous. Neuro: Level of Consciousness is awake, alert, obeys commands, Oriented to person, place, time, Oyster Sorter are equal bilaterally Moves all extremities. Gait is steady, Speech is normal, Facial symmetry appears normal. Cardiovascular: No deficits noted. Capillary refill < 3 seconds is brisk in bilateral fingers. Respiratory: Airway is patent Respiratory effort is even, unlabored, Respiratory pattern is regular, symmetrical. GI: No deficits noted. No signs and/or symptoms were reported involving the gastrointestinal system. : No deficits noted. No signs and/or symptoms were reported regarding the genitourinary system. EENT: No deficits noted. No signs and/or symptoms were reported regarding the EENT system. Derm: Skin Localized redness, warmth, and edema to to left suprapubic area. Skin is dry, Skin is pink, warm \\T\\ dry. Skin temperature is warm Wound noted. Musculoskeletal: No deficits noted. No signs and/or symptoms reported regarding the musculoskeletal system. 23:30 Reassessment: D/C per MD order. Discharge/Prescription instructions given to patient. tk1 Verbalized understanding. Vital Signs: 22:55 BP 137 / 81; Pulse 79; Resp 18; Temp 97.1; Pulse Ox 99% ; Weight 95.25 kg; Height 5 ft. ss7 11 in. (180.34 cm); Pain 8/10; 22:55 Body Mass Index 29.29 (95.25 kg, 180.34 cm) ss7 ED Course: 22:50 Patient arrived in ED. ag3 22:54 Triage completed. ss7 22:55 Arm band placed on right wrist. ss7 22:57 [facility] Tucker [facility] jr8 22:57 Channing Walker MD is Attending Physician. jr8 22:58 Shannan Champagne is Primary Nurse. tk1 22:58 Patient has correct armband on for positive identification. Placed in gown. Bed in low tk1 position. Call light in reach. Side rails up X 1. Pulse ox on. NIBP on. 22:58 No provider procedures requiring assistance completed. tk1 23:30 Patient did not have IV access during this emergency room visit. tk1 Administered Medications: No medications were administered Outcome: 23:18 Discharge ordered by MD. jr8 23:30 Discharged to home ambulatory. tk1 23:30 Condition: stable 23:30 Discharge instructions given to patient, Instructed on discharge instructions, follow up and referral plans. medication usage, Demonstrated understanding of instructions, follow-up care, medications. 23:43 Patient left the ED. tk1 Signatures: Ezekiel Tucker PA PA jr8 Lori Olivarez Tammie tk1 Latasha John RN RN ss7 Corrections: (The following items were deleted from the chart) 22:56 22:54 Home Meds: Z-Pack; ss7 ss7 22:56 22:54 PMHx: None; ss7 ss7
--- NOTE | 2022-01-13 23:19 | EDPHYS ---
Physician Documentation [facility] Name: Mauro Flanagan Age: 36 yrs Sex: Male : 1985 Arrival Date: 01/13/2022 Time: 22:50 Bed 23 Private MD: ED Physician Channing Walker HPI: 01/13 23:16 This 36 yrs old Male presents to ER via Ambulatory with complaints of Insect jr8 Bite. 23:16 Onset: The symptoms/episode began/occurred acutely, yesterday. The patient has not jr8 experienced similar symptoms in the past. The patient has not recently seen a physician. Patient stated that he felt a small red lump to his mons pubic region yesterday that was tender to palpation. Today has increased in size substantially has become more painful. Denies fevers at this time. Historical: - Allergies: 22:54 GUAIFENESIN; ss7 22:54 Lidocaine; increases blood pressure; ss7 - Home Meds: 22:54 None [Active]; ss7 - PMHx: 22:55 Inguinal hernia; ss7 - PSHx: 22:54 Appendectomy; ss7 - Immunization history:: Client reports having NOT received the Covid vaccine. Flu vaccine is not up to date. - Social history:: Smoking status: Patient denies any tobacco usage or history of. ROS: 23:16 Eyes: Negative for injury, pain, redness, and discharge, ENT: Negative for injury, jr8 pain, and discharge, Neck: Negative for injury, pain, and swelling, Cardiovascular: Negative for chest pain, palpitations, and edema, Respiratory: Negative for shortness of breath, cough, wheezing, and pleuritic chest pain, Abdomen/GI: Negative for abdominal pain, nausea, vomiting, diarrhea, and constipation, Back: Negative for injury and pain, MS/Extremity: Negative for injury and deformity, Neuro: Negative for headache, weakness, numbness, tingling, and seizure. 23:16 Skin: Positive for cellulitis. Exam: 23:16 Constitutional: This is a well developed, well nourished patient who is awake, alert, jr8 and in no acute distress. Cardiovascular: Regular rate and rhythm with a normal S1 and S2. No gallops, murmurs, or rubs. Normal PMI, no JVD. No pulse deficits. Respiratory: Lungs have equal breath sounds bilaterally, clear to auscultation and percussion. No rales, rhonchi or wheezes noted. No increased work of breathing, no retractions or nasal flaring. Abdomen/GI: Soft, non-tender, with normal bowel sounds. No distension or tympany. No guarding or rebound. No evidence of tenderness throughout. MS/ Extremity: Pulses equal, no cyanosis. Neurovascular intact. Full, normal range of motion. Neuro: Awake and alert, GCS 15, oriented to person, place, time, and situation. Motor strength 5/5 in all extremities. Sensory grossly intact. 23:16 Skin: Patient has approximately 2.5 cm indurated region with surrounding erythema and tenderness to the superior portion of his mons pubic region. No degree of fluctuance noted at this time.. Vital Signs: 22:55 BP 137 / 81; Pulse 79; Resp 18; Temp 97.1; Pulse Ox 99% ; Weight 95.25 kg; Height 5 ft. ss7 11 in. (180.34 cm); Pain 8/10; 22:55 Body Mass Index 29.29 (95.25 kg, 180.34 cm) ss7 MDM: 22:57 Patient medically screened. jr8 23:16 Data reviewed: vital signs, nurses notes, and as a result, I will discharge patient. jr8 Data interpreted: Pulse oximetry: on room air is 99 %. Interpretation: normal. Counseling: I had a detailed discussion with the patient and/or guardian regarding: the historical points, exam findings, and any diagnostic results supporting the discharge/admit diagnosis, the need for outpatient follow up, a family practitioner, to return to the emergency department if symptoms worsen or persist or if there are any questions or concerns that arise at home. Administered Medications: No medications were administered Disposition: 01/14 05:36 Co-signature as Attending Physician, Channing Walker MD I agree with the assessment and gail plan of care. Disposition Summary: 01/13/22 23:18 Discharge Ordered Location: Home jr8 Problem: new jr8 Symptoms: have improved jr8 Condition: Stable jr8 Diagnosis - Local infection of the skin and subcutaneous tissue, unspecified jr8 Followup: jr8 - With: Private Physician - When: 1 week - Reason: Recheck today's complaints, Continuance of care, Re-evaluation by your physician Discharge Instructions: - Discharge Summary Sheet jr8 - Skin Abscess jr8 - Cellulitis, Adult jr8 Forms: - Medication Reconciliation Form jr8 - Thank You Letter jr8 - Antibiotic Education jr8 - Prescription Opioid Use jr8 Prescriptions: - Bactrim DS 800-160 mg Oral Tablet - take 1 tablet by ORAL route every 12 hours for 10 days; 20 tablet; Refills: 0, jr8 Product Selection Permitted - mupirocin 2 % Topical ointment - apply 1 application by TOPICAL route 3 times per day for 7 days; 1 tube; jr8 Refills: 0, Product Selection Permitted Signatures: Channing Walker MD MD cha Roszak, Josh, PA PA jr8 Latasha John RN RN ss7 Corrections: (The following items were deleted from the chart) 01/13 22:56 22:54 Home Meds: Z-Pack; 7 7 22:56 22:54 PMHx: None; 7 7
[2022-01-14 00:39] VITALS: BP 137/81; TEMP 97.1; O2SAT 99
== END 2022-01-13 23:43 | disposition home or self-care (01) ==
LOC: ER 22:46
DX: L03.314 Cellulitis of groin (principal); Z88.4 Allergy status to anesthetic agent; Z88.8 Allergy status to other drugs, medicaments and biological substances
CPT/HCPCS: 99283

== ENCOUNTER 2024-11-13 21:43 | Emergency (ER) | payer OTHER ==
[2024-11-13] MEDS ORDERED: predniSONE 20 MG TAB ONE (22:10)
[2024-11-13] MEDS ORDERED: KETOROLAC 30 MG/ML INJ ONE (22:10)
[2024-11-13] MEDS ORDERED: methocarbamoL 750 MG TAB ONE (22:10)
[2024-11-13] MEDS ORDERED: ONDANSETRON 4 MG/2 ML VIAL ONE (22:10)
[2024-11-13] MEDS ORDERED: NA CHLORIDE 0.9% 1,000 ML ONE (22:11)
[2024-11-13] MEDS ORDERED: HYDROCODONE/APAP 5/325 MG TAB ONE (22:11)
[2024-11-13 22:46] LABS: Absolute Eosinophils 0.1 K/uL (0-0.5); Absolute Lymphocytes (CBC) 0.9 K/uL (0.7-4.9); Absolute Monocytes 0.6 K/uL (0.1-1.3); Absolute Neutrophil 2.8 K/uL (1.8-8.0); Basophils % 0.4 % (0-1.3); Eosinophils % 1.5 % (0-4.4); Hematocrit 45.6 % (39.6-49.0); Hemoglobin 16.4 g/dL (13.6-17.9); Lymphocytes % 20.3 % (15.3-44.8); MCV 86.1 fL (80-100); MPV 8.8 fL (7.6-11.3); Monocytes % 12.6 % (3.3-12.3); Neutrophils % 65.2 % (41.7-73.7); Nucleated Red Blood Cells % 0.1 % (0-0); Platelets 163 thou/uL (152-406); RBC Red Blood Cell Count 5.29 M/uL (4.33-5.43); Red Cell Distribution Width 13.3 % (12.1-15.2)
[2024-11-13 22:52] LABS: Albumin 3.8 g/dL (3.4-5.0); Albumin/Globulin Ratio 1.1 (1.1-1.8); Bilirubin Total 0.8 mg/dL (0.2-1.0); Globulin 3.6 g/dL (2.3-3.5); Protein, Total 7.4 g/dL (6.4-8.2)
[2024-11-13 22:57] LABS: Specific Gravity 1.024 (1.005-1.030); Sqamous Epithelial None Seen /HPF (None Seen); Urine Bacteria None Seen /HPF (<20); Urine Bilirubin NEGATIVE (Negative); Urine Blood 1+ (Negative); Urine Clarity Clear (Clear); Urine Color Light-Yellow (Yellow); Urine Culture Reflex Order NOT NEEDED; Urine Glucose NEGATIVE (Negative); Urine Ketones NEGATIVE (Negative); Urine Microscopic Reflex YN ORDER UMIC; Urine Mucus Slight /HPF (None Seen); Urine Nitrite NEGATIVE (Negative); Urine Protein NEGATIVE (Negative); Urine RBC <5 /HPF (None Seen); Urine Urobilinogen Normal (Normal); Urine WBC <5 /HPF (<5); Urine pH 5.5 (5.0-7.0)
--- NOTE | 2024-11-14 01:08 | EDPHYS ---
Physician Documentation [facility] Name: Mauro Flanagan Age: 39 yrs Sex: Male : 1985 Arrival Date: 11/13/2024 Time: 21:43 Bed 2 Private MD: ED Physician Elgin Ludwig HPI: 11/13 21:53 This 39 yrs old Male presents to ER via Unassigned with complaints of Back sp4 Pain. 11/14 04:35 Patient presents with acute onset right neck and back pain, patient also reports sp4 right-sided nodules of the testicle.. Historical: - Allergies: 11/13 22:04 GUAIFENESIN; bm8 22:04 Lidocaine; increases blood pressure; bm8 - Home Meds: 22:04 None [Active]; bm8 - PMHx: 22:04 inguinal hernia; bm8 - PSHx: 22:04 Appendectomy; bm8 - Immunization history:: Adult Immunizations up to date. - Infectious Disease History:: Denies. - Social history:: Smoking status: Patient denies any tobacco usage or history of. Patient uses alcohol, occasionally. - Family history:: not pertinent. ROS: 11/14 04:35 Constitutional: Negative for fever, chills, and weight loss, positive for acute neck sp4 pain and upper back pain. Positive for right-sided testicular nodules Eyes: Negative for injury, pain, redness, and discharge, ENT: Negative for injury, pain, and discharge, Neck: Negative for injury, pain, and swelling, Cardiovascular: Negative for chest pain, palpitations, and edema, All other systems are negative, Exam: 04:35 Constitutional: This is a well developed, well nourished patient who is awake, alert, sp4 and in no acute distress. Head/Face: Normocephalic, atraumatic. Eyes: Pupils equal round and reactive to light, extra-ocular motions intact. Lids and lashes normal. Conjunctiva and sclera are not injected. Cornea within normal limits. Periorbital areas with no swelling, redness, or edema. ENT: Nares patent. No nasal discharge, no septal abnormalities noted. Tympanic membranes are normal and external auditory canals are clear. Oropharynx with no redness, swelling, or masses, exudates, or evidence of obstruction, uvula midline. Mucous membranes moist. Neck: Trachea midline, no thyromegaly or masses palpated, and no cervical lymphadenopathy. Supple, full range of motion without nuchal rigidity, or vertebral point tenderness. Chest/axilla: Normal chest wall appearance and motion. Nontender with no deformity. No lesions are appreciated. Cardiovascular: Regular rate and rhythm with a normal S1 and S2. No gallops, murmurs, or rubs. Normal PMI, no JVD. No pulse deficits. Respiratory: Lungs have equal breath sounds bilaterally, clear to auscultation and percussion. No rales, rhonchi or wheezes noted. No increased work of breathing, no retractions or nasal flaring. Abdomen/GI: Soft, with normal bowel sounds. No distension or tympany. No guarding or rebound. No evidence of tenderness throughout. Back: No spinal tenderness. No costovertebral tenderness. Male : Normal genitalia with no discharge or lesions. Normal bilateral testicular exam no palpable nodules or masses. Skin: Warm, dry with normal turgor. Normal color with no rashes, no lesions, and no evidence of cellulitis. MS/ Extremity: Pulses equal, no cyanosis. Neurovascular intact. Full, normal range of motion. Neuro: Awake and alert, GCS 15, oriented to person, place, time, and situation. Cranial nerves II-XII grossly intact. Motor strength 5/5 in all extremities. Sensory grossly intact. Psych: Awake, alert, with orientation to person, place and time. Behavior, mood, and affect are within normal limits Vital Signs: 11/13 21:52 BP 154 / 90; Pulse 98; Resp 18; Temp 99; Pulse Ox 96% ; Weight 102.06 kg; Height 5 ft. bm8 10 in. ; Pain 6/10; 22:43 BP 131 / 89; Pulse 86; Resp 17; Temp 99; Pulse Ox 99% ; Pain 6/10; bm8 23:52 BP 132 / 84; Pulse 86; Resp 17; Temp 98.8; Pulse Ox 99% ; Pain 5/10; bm8 11/14 01:19 BP 136 / 80; Pulse 71; Resp 17; Temp 98.8; Pulse Ox 99% ; Pain 0/10; bm8 11/13 21:52 Body Mass Index 32.28 (102.06 kg, 177.8 cm) bm8 11/13 21:52 Pain Scale: Adult bm8 22:43 Pain Scale: Adult bm8 23:52 Pain Scale: Adult bm8 11/14 01:19 Pain Scale: Adult bm8 [place] Coma Score: 11/13 22:43 Eye Response: spontaneous(4). Motor Response: obeys commands(6). Verbal Response: bm8 oriented(5). Total: 15. 23:52 Eye Response: spontaneous(4). Motor Response: obeys commands(6). Verbal Response: bm8 oriented(5). Total: 15. 11/14 01:19 Eye Response: spontaneous(4). Motor Response: obeys commands(6). Verbal Response: bm8 oriented(5). Total: 15. 04:35 Eye Response: spontaneous(4). Motor Response: obeys commands(6). Verbal Response: sp4 oriented(5). Total: 15. MDM: 11/13 21:57 Medical Screening Exam initiated sp4 11/14 00:47 ED course: EXAM: CT Head and Cervical Spine Without Intravenous Contrast CLINICAL sp4 HISTORY: The patient is 39 years old and is Male; spinal pain rule out mass TECHNIQUE: Axial computed tomography images of the head/brain and cervical spine without intravenous contrast. Sagittal and coronal reformatted images were created and reviewed. This CT exam was performed using one or more of the following dose reduction techniques: automated exposure control, adjustment of the mA and/or kV according to patient size, and/or use of iterative reconstruction technique. COMPARISON: CT of the head August 11, 2020 FINDINGS: BRAIN: Unremarkable. No hemorrhage. No significant white matter disease. No edema. VENTRICLES: Unremarkable. No ventriculomegaly. SKULL: No acute fracture. SINUSES: Unremarkable as visualized. No acute sinusitis. MASTOID AIR CELLS: Unremarkable as visualized. No mastoid effusion. VERTEBRAE: Mild reversal of the normal cervical curvature is present. Vertebral body heights and alignment are maintained. There is no acute fracture. DISCS/SPINAL CANAL/NEURAL FORAMINA: The intervertebral disc spaces are maintained. No spinal canal stenosis. SOFT TISSUES: The soft tissues are normal. LUNG APICES: Unremarkable as visualized. IMPRESSION: 1. No acute intracranial findings. 2. Mild reversal of the normal cervical curvature is present. Findings may be secondary to patient position versus muscle spasm. If there is continued concern, an MRI should be performed.. ED course: EXAM: US Scrotum CLINICAL HISTORY: The patient is 39 years old and is Male; testicular lump TECHNIQUE: Real-time ultrasound of the scrotum with color Doppler and image documentation. COMPARISON: No relevant prior studies available. FINDINGS: RIGHT TESTICLE: Unremarkable. No mass. There is normal blood flow in the testicle, without evidence of testicular torsion. LEFT TESTICLE: Unremarkable. No mass. There is normal blood flow in the testicle, without evidence of testicular torsion. EPIDIDYMIDES: A small right epididymal head cyst is present. SCROTUM: Unremarkable. IMPRESSION: No evidence of torsion. . 00:49 ED course: COMPARISON: No relevant prior studies available. FINDINGS: ARTIFACTS: The sp4 exam is suboptimal secondary to motion artifact. CHEST: LUNGS: The lungs are clear of focal opacity, mass, or consolidation. PLEURAL SPACE: Unremarkable. No significant effusion. No pneumothorax. HEART: No cardiomegaly. No pericardial effusion. ABDOMEN: LIVER: The liver is enlarged and mildly fatty. The liver is homogeneous. GALLBLADDER AND BILE DUCTS: The gallbladder is contracted. No calcified gallstones or ductal dilatation is seen. PANCREAS: No ductal dilation. No mass. SPLEEN: Unremarkable. ADRENALS: Unremarkable. No mass. KIDNEYS AND URETERS: Unremarkable. The kidneys enhance symmetrically. No obstructing renal or ureteral calculus is seen. No hydronephrosis or hydroureter. No perinephric fluid or stranding. STOMACH AND BOWEL: Stomach is minimally distended with food contents. The small bowel is normal in caliber. Stool is present throughout the colon. There is no mucosal thickening or evidence of obstruction. PELVIS: APPENDIX: No findings to suggest acute appendicitis. BLADDER: The bladder is moderately distended. REPRODUCTIVE: Unremarkable as visualized. CHEST, ABDOMEN and PELVIS: INTRAPERITONEAL SPACE: Unremarkable. No significant fluid collection. No free air. BONES/JOINTS: A small Schmorl's node superior endplate of L3 is present. The vertebral body heights and alignment are maintained. There is no acute fracture of the visualized axial and appendicular skeleton. SOFT TISSUES: The soft tissues are normal. VASCULATURE: A few calcified phleboliths are present within the pelvis. No aortic aneurysm. LYMPH NODES: Unremarkable. No enlarged lymph nodes. IMPRESSION: No acute findings on this contrasted CT of the chest, abdomen and pelvis to explain the patient's symptoms. Electronically signed by: Alicia Finch MD 11/14/2024 12:46 AM [employer] RP. 04:35 Differential diagnosis: Cholelithiasis chronic back pain, Fatigue Fracture. Data sp4 reviewed: vital signs, nurses notes, old medical records, lab test result(s), radiologic studies, CT scan, ultrasound. Consideration of Admission/Observation Escalation of care including admission/observation considered. ED course: Ultrasound is normal, CT is normal. Patient stable for discharge home.. 11/13 22:07 Order name: CBC with Diff; Complete Time: 00:46 sp4 11/13 22:07 Order name: CMP; Complete Time: 00:46 sp4 11/13 22:07 Order name: Lipase; Complete Time: 00:46 sp4 11/13 22:07 Order name: Urinalysis w/ reflexes; Complete Time: 00:46 sp4 11/13 22:06 Order name: US Scrotum Testicles sp4 11/13 22:06 Order name: CT Chest, Abdomen, Pelvis - W/Contrast sp4 11/13 22:06 Order name: CT Head C Spine sp4 11/13 22:07 Order name: IV Saline Lock; Complete Time: 22:26 sp4 11/13 22:07 Order name: Labs collected and sent; Complete Time: 22:26 sp4 Administered Medications: 11/13 22:25 Not Given (Patient Refused): [id number] mg PO once bm8 22:25 Not Given (Patient Refused): [id number] mg PO once bm8 22:26 Not Given (Patient Refused): TORadol - [id number] mg IVP once bm8 22:26 Not Given (Patient Refused): ondansetron 4 mg IVP once; over 2 minutes bm8 22:26 Drug: NS 0.9% IV 1000 ml IV at 1 bolus Per protocol; to be given as a bolus over 60 bm8 minutes Route: IV; Rate: 1 bolus; Site: right antecubital; 23:53 Follow up: Response: No adverse reaction; IV Status: Completed infusion; IV Intake: bm8 1000ml 22:26 Not Given (Patient Refused): hydrocodone-acetaminophen5 mg-325 mg 2 tabs PO once bm8 Disposition: 11/14 04:37 Chart complete. sp4 Disposition Summary: 11/14/24 01:08 Discharge Ordered Problem: new sp4 Symptoms: have improved sp4 Condition: Stable sp4 Diagnosis - Acute upper thoracic sprain, Acute Neck sprain , Testicular Nodules sp4 Followup: sp4 - With: Galen Giraldo DO - When: 7 - 10 days - Reason: Recheck today's complaints Discharge Instructions: - Discharge Summary Sheet sp4 - Cervical Strain and Sprain Rehab-[facility] sp4 Forms: - Work release form sp4 - Patient Portal Instructions sp4 Prescriptions: - naproxen 500 mg Oral tablet - take 1 tablet ORAL route every 12 hours PRN pain; 50 tablet; Refills: 0, sp4 Product Selection Permitted - methocarbamol 750 mg Oral tablet - take 2 tablets ORAL route every 8 hours for 2 days PRN muscle soreness; 60 sp4 tablet; Refills: 0, Product Selection Permitted Signatures: Dispatcher [employer] Elgin Person MD MD sp4 Azar Luo, RN RN bm8
--- NOTE | 2024-11-14 01:08 | ER ---
Nurse's Notes [facility] Name: Mauro Flanagan Age: 39 yrs Sex: Male : 1985 Arrival Date: 11/13/2024 Time: 21:43 Bed 2 Private MD: Diagnosis: Acute upper thoracic sprain, Acute Neck sprain , Testicular Nodules Presentation: 11/13 21:52 Chief complaint: Patient states: I have middle and upper back pain that began on bm8 Monday. I am also concerned because it doesn't feel like i am emptying my bladder and I have to lumps on my right testicle. 21:52 Coronavirus screen: Vaccine status: Patient reports being unvaccinated. Ebola Screen: 8 Patient negative for fever greater than or equal to 101.5 degrees Fahrenheit, and additional compatible Ebola Virus Disease symptoms Patient denies exposure to infectious person. Patient denies travel to an Ebola-affected area in the 21 days before illness onset. No symptoms or risks identified at this time. Initial Sepsis Screen: Does the patient meet any 2 criteria? No. Patient's initial sepsis screen is negative. Does the patient have a suspected source of infection? No. Patient's initial sepsis screen is negative. Risk Assessment: Do you want to hurt yourself or someone else? Patient reports no desire to harm self or others. 21:52 Method Of Arrival: Ambulatory [facility] 21:52 Acuity: MARTA 3 [facility] 21:52 Onset of symptoms was November 09, 2024. [facility] Triage Assessment: 22:04 General: Appears in no apparent distress. comfortable, Behavior is calm, cooperative, bm8 appropriate for age. Pain: Complains of pain in left trapezius, right trapezius, left mid back and right mid back Pain currently is 6 out of 10 on a pain scale. EENT: No deficits noted. No signs and/or symptoms were reported regarding the EENT system. Neuro: No deficits noted. Level of Consciousness is awake, alert, obeys commands, Oriented to person, place, time, situation, Appropriate for age. Cardiovascular: Denies chest pain, Heart tones S1 S2 present Capillary refill < 3 seconds in bilateral fingers Patient's skin is warm and dry. Respiratory: Airway is patent Trachea midline Respiratory effort is even, unlabored, Respiratory pattern is regular, symmetrical, Breath sounds are clear bilaterally. GI: No signs and/or symptoms were reported involving the gastrointestinal system. : Reports inability to void, doesn't feel like he is emptying all the way concerned with two lumps on right testicle. Derm: No signs and/or symptoms reported regarding the dermatologic system. Musculoskeletal: Circulation, motion, and sensation intact. Capillary refill Range of motion: intact in all extremities, Reports pain in back. Historical: - Allergies: 22:04 GUAIFENESIN; bm8 22:04 Lidocaine; increases blood pressure; bm8 - Home Meds: 22:04 None [Active]; bm8 - PMHx: 22:04 inguinal hernia; bm8 - PSHx: 22:04 Appendectomy; bm8 - Immunization history:: Adult Immunizations up to date. - Infectious Disease History:: Denies. - Social history:: Smoking status: Patient denies any tobacco usage or history of. Patient uses alcohol, occasionally. - Family history:: not pertinent. Screenin:24 [facility] ED Fall Risk Assessment (Adult) History of falling in the last 3 months, bm8 including since admission No falls in past 3 months (0 pts) Confusion or Disorientation No (0 pts) Intoxicated or Sedated No (0 pts) Impaired Gait No (0 pts) Mobility Assist Device Used No (0 pt) Altered Elimination No (0 pt) Score/Fall Risk Level 0 - 2 = Low Risk Oriented to surroundings, Maintained a safe environment, Educated pt \T\ family on fall prevention, incl call for assistance when getting out of bed, Assessed \T\ reinforced patient's understanding of fall precautions, Hourly rounding (assess needs \T\ fall precautionary measures) done, Used ambulatory aids as needed (educated on \T\ assisted with), Used gait belt as appropriate. Abuse screen: Denies threats or abuse. Nutritional screening: No deficits noted. Tuberculosis screening: No symptoms or risk factors identified. Assessment: 22:24 Reassessment: pt declined all meds except for fluids, provider notifed. Neuro: No bm8 deficits noted. Level of Consciousness is awake, alert, obeys commands, Oriented to person, place, time, situation, Appropriate for age [employer]ick[employer] Operator are equal bilaterally Moves all extremities. Full function Gait is steady, Speech is normal. 22:43 Reassessment: Patient appears in no apparent distress at this time. Patient and/or bm8 family updated on plan of care and expected duration. Pain level reassessed. Patient is alert, oriented x 3, equal unlabored respirations, skin warm/dry/pink. pt with ultrasound. 23:52 Reassessment: Patient appears in no apparent distress at this time. Patient and/or bm8 family updated on plan of care and expected duration. Pain level reassessed. Patient is alert, oriented x 3, equal unlabored respirations, skin warm/dry/pink. Patient states feeling better. Patient states symptoms have improved. Pain: Pain currently is 5 out of 10 on a pain scale. 11/14 01:19 Reassessment: Patient appears in no apparent distress at this time. Patient and/or bm8 family updated on plan of care and expected duration. Pain level reassessed. Patient is alert, oriented x 3, equal unlabored respirations, skin warm/dry/pink. Patient denies pain at this time. Patient states feeling better. Patient states symptoms have improved. Vital Signs: 11/13 21:52 BP 154 / 90; Pulse 98; Resp 18; Temp 99; Pulse Ox 96% ; Weight 102.06 kg; Height 5 ft. bm8 10 in. ; Pain 6/10; 22:43 BP 131 / 89; Pulse 86; Resp 17; Temp 99; Pulse Ox 99% ; Pain 6/10; bm8 23:52 BP 132 / 84; Pulse 86; Resp 17; Temp 98.8; Pulse Ox 99% ; Pain 5/10; 8 11/14 01:19 BP 136 / 80; Pulse 71; Resp 17; Temp 98.8; Pulse Ox 99% ; Pain 0/10; 8 11/13 21:52 Body Mass Index 32.28 (102.06 kg, 177.8 cm) 8 11/13 21:52 Pain Scale: Adult bm8 22:43 Pain Scale: Adult bm8 23:52 Pain Scale: Adult bm8 11/14 01:19 Pain Scale: Adult bm8 Lowell Coma Score: 11/13 22:43 Eye Response: spontaneous(4). Motor Response: obeys commands(6). Verbal Response: bm8 oriented(5). Total: 15. 23:52 Eye Response: spontaneous(4). Motor Response: obeys commands(6). Verbal Response: bm8 oriented(5). Total: 15. 11/14 01:19 Eye Response: spontaneous(4). Motor Response: obeys commands(6). Verbal Response: bm8 oriented(5). Total: 15. 04:35 Eye Response: spontaneous(4). Motor Response: obeys commands(6). Verbal Response: sp4 oriented(5). Total: 15. ED Course: 11/13 21:47 Patient arrived in ED. kmf 21:53 Elgin Ludwig MD is Attending Physician. sp4 22:02 Azar Luo, RN is Primary Nurse. bm8 22:04 Triage completed. bm8 22:04 Arm band placed on right wrist. bm8 22:24 Patient has correct armband on for positive identification. Placed in gown. Bed in low bm8 position. Call light in reach. Side rails up X 1. Client placed on continuous cardiac and pulse oximetry monitoring. NIBP monitoring applied. Pulse ox on. NIBP on. Door closed. Noise minimized. Warm blanket given. Pillow given. Verbal reassurance given. Head of bed elevated. 22:24 No provider procedures requiring assistance completed. Initial lab(s) drawn, by agustin cutler sent to lab. Urine collected: clean catch specimen, clear. Inserted saline lock: 18 gauge in right antecubital area, using aseptic technique. Blood collected. Flushed with 10 mL NS. Patient maintains SpO2 saturation greater than 95% on room air. 22:39 US Scrotum Testicles In Process Unspecified. EDMS 23:39 CT Chest, Abdomen, Pelvis - W/Contrast In Process Unspecified. EDMS 23:39 CT Head C Spine In Process Unspecified. EDMS 11/14 01:07 Galen Giraldo DO is Referral Physician. sp4 01:19 Provided Education on: post er care. bm8 01:19 IV discontinued, intact, bleeding controlled, No redness/swelling at site. Pressure bm8 dressing applied. Administered Medications: 11/13 22:25 Not Given (Patient Refused): [id number] mg PO once bm8 22:25 Not Given (Patient Refused): [id number] mg PO once bm8 22:26 Not Given (Patient Refused): TORadol - [id number] mg IVP once bm8 22:26 Not Given (Patient Refused): ondansetron 4 mg IVP once; over 2 minutes bm8 22:26 Drug: NS 0.9% IV 1000 ml IV at 1 bolus Per protocol; to be given as a bolus over 60 bm8 minutes Route: IV; Rate: 1 bolus; Site: right antecubital; 23:53 Follow up: Response: No adverse reaction; IV Status: Completed infusion; IV Intake: bm8 1000ml 22:26 Not Given (Patient Refused): hydrocodone-acetaminophen5 mg-325 mg 2 tabs PO once bm8 Medication: 22:24 VIS not applicable for this client. bm8 Intake: 23:53 IV: 1000ml; Total: 1000ml. bm8 Outcome: 11/14 01:08 Discharge ordered by . sp4 01:19 Discharged to home ambulatory, bm8 01:19 Condition: stable 01:19 Discharge instructions given to patient, Instructed on discharge instructions, follow up and referral plans. medication usage, safety practices, Demonstrated understanding of instructions, follow-up care, medications, Prescriptions given X 2, 01:21 Patient left the ED. bm8 Signatures: Dispatcher [employer] EDMS Elgin Ludwig MD MD sp4 Forrester, Kelsey Maroul Azar Gonzalez, RN RN bm8 Corrections: (The following items were deleted from the chart) 11/13 22:04 22:02 Chief complaint: Patient states: I have middle and upper back pain that began on bm8 Monday. I am also concerned because it doesn't feel like i am emptying my bladder and I have to lumps on my right testicle. bm8
--- NOTE | 2024-11-14 01:13 | RAD REPORT ---
EXAM: CT Head and Cervical Spine Without Intravenous Contrast CLINICAL HISTORY: The patient is 39 years old and is Male; spinal pain rule out mass TECHNIQUE: Axial computed tomography images of the head/brain and cervical spine without intravenous contrast. Sagittal and coronal reformatted images were created and reviewed. This CT exam was performed using one or more of the following dose reduction techniques: automated exposure control, adjustmen t of the mA and/or kV according to patient size, and/or use of iterative reconstruction technique. COMPARISON: CT of the head August 11, 2020 FINDINGS: BRAIN: Unremarkable. No hemorrhage. No significant white matter disease. No edema. VENTRICLES: Unremarkable. No ventriculomegaly. SKULL: No acute fracture. SINUSES: Unremarkable as visualized. No acute sinusitis. MASTOID AIR CELLS: Unremarkable as visualized. No mastoid effusion. VERTEBRAE: Mild reversal of the normal cervical curvature is present. Vertebral body heights an d alignment are maintained. There is no acute fracture. DISCS/SPINAL CANAL/NEURAL FORAMINA: The intervertebral disc spaces are maintained. No spinal haile l stenosis. SOFT TISSUES: The soft tissues are normal. LUNG APICES: Unremarkable as visualized. IMPRESSION: 1. No acute intracranial findings. 2. Mild reversal of the normal cervical curvature is present. Findings may be secondary to patien t position versus muscle spasm. If there is continued concern, an MRI should be performed. Electronically signed by: Alicia Finch MD 11/14/2024 12:41 AM [facility] Due to temporary technical issues with the PACS/[employer] reporting system, reports are being glo d by the in-house radiologist without review as a courtesy to ensure prompt reporting the interpreting radiologist is fully responsible for the content of the report. Transcribed Date/Time: 11/14/2024 1:13 AM
--- NOTE | 2024-11-14 01:14 | RAD REPORT ---
EXAM: CT Chest, Abdomen and Pelvis With Intravenous Contrast CLINICAL HISTORY: The patient is 39 years old and is Male; spinal pain, rule out mass TECHNIQUE: Axial computed tomography images of the chest, abdomen and pelvis with intravenous contrast. Sagi ttal and coronal reformatted images were created and reviewed. This CT exam was performed using one or more of the following dose reduction techniques: automated exposure control, adjustment of t he mA and/or kV according to patient size, and/or use of iterative reconstruction technique. COMPARISON: No relevant prior studies available. FINDINGS: ARTIFACTS: The exam is suboptimal secondary to motion artifact. CHEST: LUNGS: The lungs are clear of focal opacity, mass, or consolidation. PLEURAL SPACE: Unremarkable. No significant effusion. No pneumothorax. HEART: No cardiomegaly. No pericardial effusion. ABDOMEN: LIVER: The liver is enlarged and mildly fatty. The liver is homogeneous. GALLBLADDER AND BILE DUCTS: The gallbladder is contracted. No calcified gallstones or ductal dila tation is seen. PANCREAS: No ductal dilation. No mass. SPLEEN: Unremarkable. ADRENALS: Unremarkable. No mass. KIDNEYS AND URETERS: Unremarkable. The kidneys enhance symmetrically. No obstructing renal or ure teral calculus is seen. No hydronephrosis or hydroureter. No perinephric fluid or stranding. STOMACH AND BOWEL: Stomach is minimally distended with food contents. The small bowel is normal i n caliber. Stool is present throughout the colon. There is no mucosal thickening or evidence of obstruction. PELVIS: APPENDIX: No findings to suggest acute appendicitis. BLADDER: The bladder is moderately distended. REPRODUCTIVE: Unremarkable as visualized. CHEST, ABDOMEN and PELVIS: INTRAPERITONEAL SPACE: Unremarkable. No significant fluid collection. No free air. BONES/JOINTS: A small Schmorl's node superior endplate of L3 is present. The vertebral body heigh ts and alignment are maintained. There is no acute fracture of the visualized axial and appendicular skeleton. SOFT TISSUES: The soft tissues are normal. VASCULATURE: A few calcified phleboliths are present within the pelvis. No aortic aneurysm. LYMPH NODES: Unremarkable. No enlarged lymph nodes. IMPRESSION: No acute findings on this contrasted CT of the chest, abdomen and pelvis to explain the patient's s ymptoms. Electronically signed by: Alicia Finch MD 11/14/2024 12:46 AM [facility] Due to temporary technical issues with the PACS/[employer] reporting system, reports are being glo d by the in-house radiologist without review as a courtesy to ensure prompt reporting the interpreting radiologist is fully responsible for the content of the report. Transcribed Date/Time: 11/14/2024 1:13 AM
[2024-11-14 05:20] VITALS: O2SAT 99
[2024-11-14 05:21] VITALS: TEMP 98.8
[2024-11-14 05:22] VITALS: BP 136/80
--- NOTE | 2024-11-14 06:50 | RAD REPORT ---
EXAM: US Scrotum CLINICAL HISTORY: The patient is 39 years old and is Male; testicular lump TECHNIQUE: Real-time ultrasound of the scrotum with color Doppler and image documentation. COMPARISON: No relevant prior studies available. FINDINGS: RIGHT TESTICLE: Unremarkable. No mass. There is normal blood flow in the testicle, without ev idence of testicular torsion. LEFT TESTICLE: Unremarkable. No mass. There is normal blood flow in the testicle, without mi dence of testicular torsion. EPIDIDYMIDES: A small right epididymal head cyst is present. SCROTUM: Unremarkable. IMPRESSION: No evidence of torsion. Electronically signed by: Alicia Finch MD 11/13/2024 11:08 PM [facility] Due to temporary technical issues with the PACS/[employer] reporting system, reports are being glo d by the in-house radiologist without review as a courtesy to ensure prompt reporting the interpreting radiologist is fully responsible for the content of the report. Transcribed Date/Time: 11/14/2024 6:50 AM
== END 2024-11-14 01:21 | disposition home or self-care (01) ==
LOC: ER 21:43
DX: S23.3XXA Sprain of ligaments of thoracic spine, initial encounter (principal); S13.9XXA Sprain of joints and ligaments of unspecified parts of neck, initial encounter; N49.2 Inflammatory disorders of scrotum
CPT/HCPCS: 85025; 81001; 36415; 83690; 80053; 70450; 72125; 71260; 74177; 76870; 96360; 99284; Q9967; J7030; J2405; J7512